=== PATIENT | female | born 2000 | race African-American/Black ===

== ENCOUNTER 2021-03-02 13:24 | Inpatient (IN) | payer MEDICAID ==
[~2021-03-02] VITALS: Ht 170.2 cm; Wt 137.9 kg
--- NOTE | ~2021-03-02 | PROC ---
[address] [address] PROCEDURE REPORT Name: MICHAELLE CHAVEZ Room: [address] IN M.R.#: [id number] Admission: 03/02/21 Attend Phys: Elías Parisi MD Discharge: 03/07/21 Date of : [birth year] Report #: [id number] THIS REPORT FOR: cc: FAM - No family physician/PCP FAM - No family physician/PCP [facility],Medical Records Staff ~ For GI report, please see the Provation report in Perceptive 7 content. By: 1040Medical Records Staff [facility] /GILBERT
--- NOTE | ~2021-03-02 | CON ---
[address] [address] CONSULTATION Name: MICHAELLE CHAVEZ Room: [address] IN M.R.#: [id number] Admission: 03/02/21 Attend Phys: Elías Parisi MD Discharge: 03/07/21 Date of : [birth year] Report #: [id number] THIS REPORT FOR: cc: CHITO - No family physician/PCP FAM - No family physician/PCP Sd Hickman MD ~ DATE OF CONSULTATION: 03/03/2021 REASON FOR CONSULTATION: Abnormal liver enzymes. HISTORY OF PRESENT ILLNESS: This is a 20-year-old female who presented to the hospital with right upper quadrant pain and nausea. The patient found to have elevated bilirubin of 4.2 and transaminitis. She had a CT and abdominal ultrasound, which showed a filling defect at the neck of the gallbladder. The patient currently denies any abdominal pain, nausea or vomiting. She is passing gas from below, but denies any bowel movement. She also reports that she has not received any pain medication. PAST MEDICAL HISTORY: Significant for history of morbid obesity, abdominal pain. ALLERGIES: No known drug allergy. MEDICATIONS: Please refer to MAR. SOCIAL HISTORY: The patient denies tobacco or alcohol use. She lives at home with her family. FAMILY HISTORY: Negative for GI malignancy. PHYSICAL EXAMINATION: VITAL SIGNS: Reveals normal vitals. LUNGS: Clear. CARDIOVASCULAR: Regular. ABDOMEN: Large, soft, nontender, nondistended. Bowel sounds are positive. LABORATORY DATA: Reveal sodium of 139, potassium 4.0, BUN is 7, creatinine 0.6, glucose is 90, AST is 431, ALT 658 with alkaline phosphatase of 247, total bilirubin of 4.2, lipase is 109. Albumin is 3.9. WBC of 8.6, hemoglobin of 13.2 and platelets of 303. IMAGING: CT of abdomen and pelvis was obtained, which revealed cholelithiasis with nonspecific distention of the gallbladder. There was no evidence of bile duct dilatation in the CT. Abdominal ultrasound was also [place] [address] CONSULTATION Name: MICHAELLE CHAVEZ Room: [address] IN .R.#: [id number] Admission: 03/02/21 Attend Phys: Elías Parisi MD Discharge: 03/07/21 Date of : 98 Report #: [id number] cholelithiasis with some gallbladder sludge. There was mild dilation of CBD to 7 mm. There was a calculus at the region of the neck of the gallbladder. ASSESSMENT AND PLAN: The patient may have had passed a stone and she has absolutely no pain or nausea at this time and her abdomen is soft. We will follow up her liver enzymes tomorrow and also obtain MRCP. We will make recommendation based on these findings. By: 1244 [id number] Hickman MD /alexx
--- NOTE | ~2021-03-02 | PROC ---
[address] [address] PROCEDURE REPORT Name: MICHAELLE CHAVEZ Room: [address] IN M.R.#: [id number] Admission: 03/02/21 Attend Phys: Elías Parisi MD Discharge: 03/07/21 Date of : [birth year] Report #: [id number] THIS REPORT FOR: cc: FAM - No family physician/PCP FAM - No family physician/PCP [facility],Medical Records Staff ~ For GI report, please see the Provation report in Perceptive 7 content. By: 1042Medical Records Staff [facility] /GILBERT
[~2021-03-02 13:24] MED LIST: NOHOMEMEDICATIONS
[2021-03-02 13:29] VITALS: BP 140/80
[2021-03-02 14:14] LABS: URINE BLOOD NEGATIVE (Negative); URINE CLARITY CLEAR; URINE COLOR DARK YELLOW; URINE GLUCOSE-RANDOM TRACE (Negative); URINE LEUKOCYTES-REFLEX NEGATIVE (Negative); URINE NITRITE-REFLEX NEGATIVE (Negative); URINE PROTEIN TRACE (Negative); URINE SPECIFIC GRAVITY >= 1.030 (1.005-1.030)
[2021-03-02 14:19] LABS: ICTOTEST (BILI CONFIRMATORY) Positive (Negative); URINE BILIRUBIN 3+ (Negative); URINE KETONES 3+ (Negative)
[2021-03-02 15:40] LABS: ABSOLUTE BASOPHILS 0.1 thou/uL (0.0-0.2); ABSOLUTE EOSINOPHILS 0.1 thou/uL (0.0-0.7); ABSOLUTE LYMPHOCYTES 1.9 thou/uL (0.8-5.3); ABSOLUTE MONOCYTES 0.6 thou/uL (0.0-1.2); BASOPHILS 0.8 %; HEMOGLOBIN 13.2 gm/dL (12.0-15.0); LYMPHOCYTES 21.6 %; MCH 24.7 pg (26.0-34.0); MCHC 32.1 g/dL (28.0-37.0); MCV 77.1 fL (80.0-100.0); MONOCYTES 7.2 %; MPV 7.5 fl. (7.2-11.1); NUCLEATED RBCS 0 /100WBC; PLATELET COUNT* 303 thou/uL (150-400); POLYS 69.4 %; RBC 5.32 mil/uL (4.20-5.00); RDW-CV 15.4 % (10.5-14.5); WBC 8.6 thou/uL (4.0-11.0)
[2021-03-02 15:50] LABS: CALCIUM 10.2 mg/dL (8.5-10.1); CREATININE 0.6 mg/dL (0.6-1.3)
[2021-03-02 15:54] LABS: ALBUMIN 3.9 g/dL (3.4-5.0); TOTAL BILIRUBIN 4.2 mg/dL (<0.1-1.0); TOTAL PROTEIN 8.8 g/dL (6.4-8.2)
[2021-03-02 21:44] VITALS: BP 137/73
[2021-03-02 21:45] VITALS: BP 121/78
[2021-03-03] VITALS: BP 119/44
[2021-03-03 04:00] VITALS: BP 124/71
[2021-03-03 08:05] VITALS: BP 114/55
--- NOTE | 2021-03-03 10:05 | EKG ---
[place] [address] ELECTROCARDIOGRAM REPORT Name: MICHAELLE CHAVEZ Room: [address] IN .R.#: [id number] Admission: 03/02/21 Attend Phys: Elías Parisi, Discharge: 03/07/21 Date of : [birth year] Date of Service: 03/02/21 1501 Report #: [id number] THIS REPORT FOR: //name// [facility] ED Test Date: 2021-03-02 Test Time: 15:01:14 Pat Name: MICHAELLE CHAVEZ Department: Room: [facility] Gender: F Addiction Professional: CASE : 2000 Requested By: Philomena Gaytan Order Number: [id number] MD: Jimbo Huffman Measurements Intervals [place] Rate: 70 P: 36 [place]: 149 QRS: 4 QRSD: 94 T: 16 QT: 371 QTc: 401 Interpretive Statements Sinus rhythm LVH by voltage No previous ECG available for comparison Electronically Signed On 03-03-2021 10:05:19 CURATOR by Jimbo Huffman [email or web address] <ELECTRONICALLY SIGNED> By: Jimbo Huffman MD, [facility] 03/03/21 1005 1501 1501 Jimbo Huffman MD, [facility] /EPI
[2021-03-03 12:36] VITALS: BP 131/62
[2021-03-03 14:02] LABS: ABSOLUTE EOSINOPHILS 0.1 thou/uL (0.0-0.7); ABSOLUTE LYMPHOCYTES 1.3 thou/uL (0.8-5.3); ABSOLUTE MONOCYTES 0.3 thou/uL (0.0-1.2); ABSOLUTE NEUTROPHILS 4.6 thou/uL (1.6-8.1); BASOPHILS 0.4 %; EOSINOPHILS 2.3 %; HEMATOCRIT 38.7 % (37.0-47.0); HEMOGLOBIN 12.5 gm/dL (12.0-15.0); LYMPHOCYTES 20.6 %; MCH 24.9 pg (26.0-34.0); MCHC 32.3 g/dL (28.0-37.0); MONOCYTES 4.5 %; MPV 7.8 fl. (7.2-11.1); NUCLEATED RBCS 0 /100WBC; PLATELET COUNT* 289 thou/uL (150-400); POLYS 72.2 %; RBC 5.02 mil/uL (4.20-5.00); RDW-CV 15.9 % (10.5-14.5); WBC 6.4 thou/uL (4.0-11.0)
[2021-03-03 14:27] LABS: ALBUMIN 3.5 g/dL (3.4-5.0); CALCIUM 9.2 mg/dL (8.5-10.1); CREATININE 0.6 mg/dL (0.6-1.3); POTASSIUM 3.7 mmol/L (3.5-5.1)
[2021-03-03 20:00] VITALS: BP 119/53
[2021-03-04 04:30] LABS: ABSOLUTE EOSINOPHILS 0.2 thou/uL (0.0-0.7); ABSOLUTE MONOCYTES 0.5 thou/uL (0.0-1.2); ABSOLUTE NEUTROPHILS 4.9 thou/uL (1.6-8.1); BASOPHILS 0.5 %; EOSINOPHILS 2.2 %; HEMATOCRIT 38.6 % (37.0-47.0); HEMOGLOBIN 12.3 gm/dL (12.0-15.0); LYMPHOCYTES 26.1 %; MCHC 31.9 g/dL (28.0-37.0); MCV 78.5 fL (80.0-100.0); MONOCYTES 6.1 %; MPV 7.6 fl. (7.2-11.1); NUCLEATED RBCS 0 /100WBC; PLATELET COUNT* 266 thou/uL (150-400); POLYS 65.1 %; RBC 4.91 mil/uL (4.20-5.00); RDW-CV 15.8 % (10.5-14.5); WBC 7.5 thou/uL (4.0-11.0)
[2021-03-04 04:53] LABS: ALBUMIN 3.4 g/dL (3.4-5.0); CALCIUM 9.1 mg/dL (8.5-10.1); CREATININE 0.4 mg/dL (0.6-1.3); POTASSIUM 3.8 mmol/L (3.5-5.1); TOTAL BILIRUBIN 4.1 mg/dL (<0.1-1.0); TOTAL PROTEIN 7.9 g/dL (6.4-8.2)
[2021-03-04 09:00] VITALS: BP 136/64
[2021-03-04 11:40] VITALS: BP 111/64
[2021-03-04 20:00] VITALS: BP 127/85
[2021-03-04 23:39] VITALS: BP 122/76
[2021-03-05 07:48] VITALS: BP 133/62
[2021-03-05 11:09] LABS: ALBUMIN 3.5 g/dL (3.4-5.0); CREATININE 0.5 mg/dL (0.6-1.3); POTASSIUM 3.7 mmol/L (3.5-5.1); TOTAL BILIRUBIN 3.7 mg/dL (<0.1-1.0); TOTAL PROTEIN 8.3 g/dL (6.4-8.2)
[2021-03-05 18:06] VITALS: BP 133/62
[2021-03-05 18:15] VITALS: BP 133/62
[2021-03-05 20:00] VITALS: BP 125/81
[2021-03-06 05:28] LABS: ALBUMIN 3.2 g/dL (3.4-5.0); CREATININE 0.5 mg/dL (0.6-1.3); POTASSIUM 4.6 mmol/L (3.5-5.1); TOTAL BILIRUBIN 4.5 mg/dL (<0.1-1.0); TOTAL PROTEIN 7.9 g/dL (6.4-8.2)
[2021-03-06 08:18] VITALS: BP 127/80
[2021-03-06 19:45] VITALS: BP 125/75
[2021-03-07] VITALS: BP 116/55
[2021-03-07 04:08] LABS: HEMATOCRIT 35.3 % (37.0-47.0); HEMOGLOBIN 11.1 gm/dL (12.0-15.0); MCH 24.6 pg (26.0-34.0); MCHC 31.5 g/dL (28.0-37.0); MCV 78.2 fL (80.0-100.0); MPV 8.3 fl. (7.2-11.1); RBC 4.52 mil/uL (4.20-5.00); WBC 8.9 thou/uL (4.0-11.0)
[2021-03-07 04:29] LABS: ALBUMIN 2.9 g/dL (3.4-5.0); CALCIUM 8.5 mg/dL (8.5-10.1); CREATININE 0.5 mg/dL (0.6-1.3); MAGNESIUM 1.8 mg/dL (1.8-2.4); POTASSIUM 3.9 mmol/L (3.5-5.1); TOTAL BILIRUBIN 1.6 mg/dL (<0.1-1.0)
[2021-03-07 08:00] VITALS: BP 122/61
[2021-03-07] MEDS ORDERED: HYDROCODON-ACE1 EAC7 PO (10:49)
--- NOTE | 2021-03-08 09:23 | OP ---
[facility] [address] [place] [address] OPERATIVE REPORT Name: MICHAELLE CHAVEZ Room: [address] IN M.R.#: [id number] Admission: 03/02/21 Attend Phys: Elías Parisi MD Discharge: 03/07/21 Date of : [birth year] Report #: [id number] THIS REPORT FOR: cc: CHITO - No family physician/PCP FAM - No family physician/PCP Rishi Pichardo MD ~ DATE OF SURGERY: 03/05/2021 PREOPERATIVE DIAGNOSIS: Cholecystitis. POSTOPERATIVE DIAGNOSES: Cholecystitis, choledocholithiasis. OPERATION: Laparoscopic cholecystectomy with intraoperative cholangiogram. SURGEON: Rishi Pichardo MD. ANESTHESIA: General. ESTIMATED BLOOD LOSS: Minimal. SPECIMENS: Gallbladder. DESCRIPTION OF PROCEDURE: After informed consent was obtained, the patient was brought to the operating room and placed supine. SCDs were placed and working, preoperative antibiotics were administered, general anesthesia was induced. The abdomen was prepped and draped in the usual sterile fashion. A 10 mm incision was made above the umbilicus. Fascia was incised and a trocar was placed. Pneumoperitoneum was established. Three right upper quadrant 5 mm ports were placed. Gallbladder was grasped at the fundus and retracted cephalad. Infundibulum was grasped and retracted laterally. I dissected out the cystic duct and cystic artery. The cystic duct was clipped. A ductotomy was made. Cholangiogram catheter was inserted. Cholangiogram was then performed. This demonstrated filling of the cystic duct, common bile duct, bifurcation of the hepatics, the common bile duct was slightly dilated. There were filling defects in the distal common bile duct consistent with stones. The cholangiogram catheter was removed. The cystic duct was clipped and ligated leaving 2 clips on the remaining duct and 1 on the remaining artery. Gallbladder was then taken off the liver bed with electrocautery. It was placed into an Endopouch and removed. The fascia was then closed with a [id number] 0 Vicryl. Skin was closed with 4-0 Monocryl. Incisions were dressed with Steri-Strips. COMPLICATIONS: [place] [address] OPERATIVE REPORT Name: MICHAELLE CHAVEZ Room: [address]#: [id number] Admission: 03/02/21 Attend Phys: Elías Parisi MD Discharge: 03/07/21 Date of : 98 Report #: [id number] DISPOSITION: The patient was taken to recovery in satisfactory condition. <ELECTRONICALLY SIGNED> By: Rishi Pichardo MD 03/08/21 0923 0641 [id number] Pichardo MD /nt
--- NOTE | 2021-03-08 17:06 | PATH ---
[address] [address] PATHOLOGY RPT PROCEDURE Name: MICHAELLE CHAVEZ Room: [address] IN M.R.#: [id number] Admission: 03/02/21 Date of : [birth year] Discharge: 03/07/21 Report #: [id number] Path Case #: [id number] [facility] Accession Number: [id number] . 01 Material submitted: . gallbladder - GALLBLADDER WITH CONTENTS . 01 Clinical history: . TRANSAMINITIS, CHOLELOTHIASIS CHOLECYSTITIS LAPAROSCOPIC CHOLECYSTECTOMY WITH GRAMS . 02 Diagnosis: Gallbladder with contents: - Chronic and acute cholecystitis, cholesterolosis and cholelithiasis with attached scant benign liver tissue and benign lymph node. (NORBERTO:duane; 03/08/2021) MBR 03/08/2021 1538 Local . 02 Electronically signed: . Alfred Cornejo MD, Pathologist NPI- [id number] . 01 Gross description: . Fixative: Formalin Labeled: Gallbladder with contents Specimen received: Previously disrupted Dimensions: 8.3 x 3.0 x 2.8 cm Lymph node: Gamez rubbery (0.8 x 0.4 x 0.3 cm) Serosa: Green, smooth and dusky and displays a transmural defect (0.3 x 0.1 cm) Calculi: Multiple ferris and bosselated calculi (approximately 3.0 x 2.4 x 1.1 cm), some of which are lodged within the proximal cystic duct. The bile is thick, green and sludge-like. Mucosa: Pale green and velvety without ferris stippling Average wall thickness: 0.2 cm Abnormalities: None A1: Gallbladder, represented to include the entirety of the candidate lymph node ([place]; 03/07/2021) DKA/DKA 03/07/2021 1216 Local . 02 Pathologist provided ICD-10: K80.12 . 02 CPT . 573717 Specimen Comment: A courtesy copy of this report has been sent to [phone] Specimen Comment: [place] [address] PATHOLOGY RPT PROCEDURE Name: MICHAELLE CHAVEZ Room: [address] IN M.R.#: [id number] Admission: 03/02/21 Date of : [birth year] Discharge: 03/07/21 Report #: [id number] Path Case #: [id number] Performed at: 01 [facility] [place] [address], [place], [place] [id number] MD Nelson Garcia MD Phone: [phone] Performed at: 02 [facility] [address] [place], [place], [place] [id number] MD Alfred Cornejo MD Phone: [phone]
== END 2021-03-07 14:14 | disposition home or self-care (01) | DRG 418 ==
LOC: M.ERS 13:24 → M.2W 17:52 → M.TBA-ER 17:52 → M.2W 17:52
PROVIDERS: Internal Medicine; Internal Medicine Gastroenterology; Nurse Practitioner Family; ADMIT Internal Medicine; ATTEND Internal Medicine
DX: K80.67 Calculus of gallbladder and bile duct with acute and chronic cholecystitis with obstruction (principal); Z68.42 Body mass index [BMI] 45.0-49.9, adult; R74.01 Elevation of levels of liver transaminase levels; F41.9 Anxiety disorder, unspecified; F32.A Depression, unspecified; R79.89 Other specified abnormal findings of blood chemistry; E80.6 Other disorders of bilirubin metabolism; E66.01 Morbid (severe) obesity due to excess calories; Z20.822 Contact with and (suspected) exposure to COVID-19; Z28.82 Immunization not carried out because of caregiver refusal